=== PATIENT | female | born 1990 | race Caucasian/White ===

== ENCOUNTER 2021-09-05 07:15 | Day surgery (SDC) | payer OTHER ==
[~2021-09-05 07:15] MED LIST: Lactated Ringers 1,000 ML IV SCH
[2021-09-05] MEDS ORDERED: Albuterol 0.083% 2.5 MG/3 ML Neb Soln NEB PRN (07:41)
[2021-09-05] MEDS ORDERED: Metoclopramide 10 MG/2 ML SDV IVPUSH PRN (07:41)
[2021-09-05] MEDS ORDERED: Ondansetron 4 MG/2 ML SDV IVPUSH PRN (07:41)
[2021-09-05] MEDS ORDERED: Naloxone 0.4 MG/ML SDV IVPUSH PRN (07:41)
[2021-09-05 08:15] LABS: BLOOD UREA NITROGEN,BUN 12 mg/dL (7.0-18.0); CARBON DIOXIDE,CO2 25.5 mmol/L (21.0-32.0); CHLORIDE,CL 104 mmol/L (98-107); GLUCOSE RANDOM 95 mg/dL (74-106); SODIUM,NA 140 mmol/L (136-145)
[2021-09-05] MEDS ORDERED: Midazolam 1 MG/ML 2 ML SDV ONE (08:34)
[2021-09-05] MEDS ORDERED: Ketamine HCL/NACL, ISO-OSM 50 MG/5 ML Syringe ONE (08:34)
[2021-09-05] MEDS ORDERED: Propofol 200 MG/20 ML SDV ONE (08:34)
[2021-09-05] MEDS ORDERED: Lidocaine 2% 5 ML SDV ONE (08:35)
[2021-09-05] MEDS ORDERED: Esmolol 100 MG/10 ML SDV ONE (08:35)
[2021-09-05] MEDS ORDERED: Rocuronium Bromide 50 MG/5 ML Syringe ONE (08:35)
[2021-09-05] MEDS ORDERED: ePHEDrine 50 MG/ML SDV ONE (08:43)
[2021-09-05] MEDS ORDERED: ceFAZolin/Dextrose,Iso-Osmotic 2 GM/50 ML Duplex Bag (Premix) IV SCH (08:45)
[2021-09-05] MEDS ORDERED: Fluorescein 5 ML Vial ONE (08:49)
[2021-09-05] MEDS ORDERED: ceFAZolin 2 GM in Premix Bag 1 BAG IV SCH (09:00)
[2021-09-05] MEDS ORDERED: ceFAZolin 1 GM Vial ONE (09:10)
[2021-09-05] MEDS ORDERED: Sugammadex Sodium 200 MG/2 ML VIAL ONE (09:29)
[2021-09-05] MEDS ORDERED: Ketorolac 30 MG/ML SDV ONE (09:29)
[2021-09-05] MEDS ORDERED: Ondansetron 4 MG/2 ML SDV ONE (09:29)
[2021-09-05] MEDS ORDERED: Furosemide 40 MG/4 ML VIAL ONE (09:36)
[2021-09-05] MEDS ORDERED: fentaNYL 100 MCG/2 ML SDV ONE (09:46)
[2021-09-05] MEDS ORDERED: Acetaminophen/oxyCODONE 325-5 MG Tab PO PRN (10:03)
[2021-09-05] MEDS ORDERED: Ketorolac 30 MG/ML SDV IVPUSH ONE (10:03)
[2021-09-05] MEDS ORDERED: Promethazine 25 MG/ML SDV IM PRN (10:03)
[2021-09-05] MEDS ORDERED: Morphine 4 MG/ML VIAL IVPUSH PRN (10:03)
[2021-09-05] MEDS: fentaNYL 100 MCG/2 ML SDV IVPUSH PRN ×4 (10:10→10:32)
[2021-09-05] MEDS: HYDROmorphone 1 MG/ML Syringe IVPUSH PRN ×3 (10:11→10:52)
[2021-09-05] MEDS: Ondansetron 4 MG/2 ML SDV IVPUSH PRN (12:29)
[2021-09-05] MEDS: Ketorolac 30 MG/ML SDV IVPUSH SCH ×2 (15:32→21:12)
[2021-09-05] MEDS: ceFAZolin 2 GM in Premix Bag 1 BAG IV SCH (16:04)
[2021-09-05] MEDS ORDERED: Scopolamine 1.5 MG Transdermal Patch TOP ONE (17:37)
[2021-09-05] MEDS ORDERED: Lisinopril 10 MG Tab PO SCH (21:00)
[2021-09-05] MEDS ORDERED: cloNIDine 0.1 MG Tab PO SCH (21:00)
[2021-09-06] MEDS: ceFAZolin 2 GM in Premix Bag 1 BAG IV SCH ×2 (01:08→09:19)
[2021-09-06] MEDS: Acetaminophen/oxyCODONE 325-5 MG Tab PO PRN ×2 (01:08→08:22)
[2021-09-06] MEDS: Ondansetron 4 MG/2 ML SDV IVPUSH PRN (01:09)
[2021-09-06] MEDS: Ketorolac 30 MG/ML SDV IVPUSH SCH ×2 (04:26→09:18)
[2021-09-06 07:25] LABS: BLOOD UREA NITROGEN,BUN 11 mg/dL (7.0-18.0); CARBON DIOXIDE,CO2 25.6 mmol/L (21.0-32.0); CHLORIDE,CL 102 mmol/L (98-107); GLUCOSE RANDOM 97 mg/dL (74-106); SODIUM,NA 136 mmol/L (136-145)
== END 2021-09-06 10:30 | disposition home or self-care (01) ==
LOC: MW.SDS 07:15 → MW.MS 11:39 → MW.SDS 09-06 10:30
PROVIDERS: ATTEND Obstetrics & Gynecology
DX: N87.9 Dysplasia of cervix uteri, unspecified (principal); N94.10 Unspecified dyspareunia; K66.0 Peritoneal adhesions (postprocedural) (postinfection); I10 Essential (primary) hypertension; F17.210 Nicotine dependence, cigarettes, uncomplicated; Z98.890 Other specified postprocedural states; Z79.899 Other long term (current) drug therapy
CPT/HCPCS: 36415; 58260; 80048; 84703; 85025; 86850; 86900; 86901; 87635; A9270; J0131; J0690; J1170; J1885; J1940; J2250; J2270; J2405; J2550; J2704; J3010; J3490; J7030; J7120; 00944; U0002